=== PATIENT | male | born 1975 | race Caucasian/White ===

== ENCOUNTER 2025-07-20 14:56 | Emergency (ER) | payer BC ==
[~2025-07-20] VITALS: Ht 175.3 cm; Wt 73.0 kg
[2025-07-20 15:02] VITALS: O2SAT 100
[2025-07-20 16:21] LABS: HEMATOCRIT. 43.1 % (42.0-52.0); HEMOGLOBIN. 14.5 g/dL (14.0-18.0); MEAN PLATELET VOLUME 8.1 fl (7.4-10.4); PLATELET 173 x1000/uL (130-400); RED BLOOD CELL COUNT 4.89 mill/uL (4.7-6.1); RED CELL DISTRIBUTION WIDTH 13.0 % (11.6-14.6)
[2025-07-20 16:31] LABS: INR 1.2
[2025-07-20 16:35] LABS: CREATININE 0.8 mg/dL (0.6-1.3)
[2025-07-20 16:36] LABS: UREA NITROGEN BLOOD 12 mg/dL (9-23)
[2025-07-20 16:37] LABS: TROPONIN I HIGH SENSITIVITY < 4 ng/L (3.0-53)
[2025-07-20 16:38] LABS: ASPARTATE AMINOTRANSFERASE 22 IU/L (<34); BILIRUBIN DIRECT 0.2 mg/dL (<=3.0); BILIRUBIN TOTAL 0.7 mg/dL (0.1-1.0); PROTEIN TOTAL 6.4 g/dL (6.0-8.3)
[2025-07-20 16:48] LABS: LYMPHOCYTES % MANUAL 9.0 % (20.0-50.0); MONOCYTES % MANUAL 6.0 % (2.0-8.0); NEUTROPHILS % MANUAL 85.0 % (45.0-75.0); PLATELET ESTIMATE NORMAL
[2025-07-20] MEDS: SODIUM CHLORIDE 0.9% 1,000 ML IV ONE (17:45)
[2025-07-20 20:31] VITALS: BP 118/71; PULSE 74; RESP 16; TEMP 36.7; O2SAT 95
== END 2025-07-20 20:59 | disposition home or self-care (01) ==
LOC: ER 14:56 → EDBEDREQ 15:56 → ER 20:59 → CMPBEDREQ 07-21 07:39
DX: R55 Syncope and collapse (principal); Z98.890 Other specified postprocedural states
CPT/HCPCS: 99285; 96360; 70450; 71045; 80076; 80048; 82962; 83735; 85025; 85610; 84484; 36415; 93005; J7030